=== PATIENT | male | born 2000 | race Caucasian/White ===

== ENCOUNTER 2024-02-12 08:07 | Emergency (ER) | payer BC, SELFPAY ==
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
[2024-02-12 08:32] VITALS: BP 152/98; PULSE 80; RESP 16; TEMP 36.8; O2SAT 99
[2024-02-12 08:38] LABS: EDUAAPPEAR Clear; EDUABILI Negative (Negative); EDUABLOOD 1+ (Negative); EDUACOLOR1 Yellow; EDUAGLUCOSE Negative (Negative); EDUAKETONE Negative (Negative); EDUALEUKO Trace (Negative); EDUANITRATE Negative (Negative); EDUAPROTEIN Negative (Negative); EDUAUROBILI 0.2
[2024-02-12 20:51] LABS: Trichomonas Vag PCR NOT DETECTED (NOT DETECTE)
[2024-02-12 21:14] LABS: Chlamydia trachomatis DETECTED (NOT DETECTE); Neisseria gonorrhoeae PCR NOT DETECTED (NOT DETECTE)
== END 2024-02-12 08:49 | disposition home or self-care (01) ==
PROVIDERS: Emergency Provider Nurse Practitioner
DX: Z11.3 Encounter for screening for infections with a predominantly sexual mode of transmission (principal); L29.89 Other pruritus
CPT/HCPCS: 81003; 87086; 87491; 87591; 87661; 99213; G0463